=== PATIENT | male | born 1980 ===

== ENCOUNTER → 2023-01-31 07:28 | Outpatient (BNV) | payer MEDICAID, SELFPAY | PROVIDERS: Emergency Provider Internal Medicine; Visit Provider Internal Medicine | DX: R41.82 Altered mental status, unspecified (principal) | CPT/HCPCS: 93010 ==

== ENCOUNTER 2023-01-31 16:34 | Emergency (ER) | payer MEDICAID, SELFPAY ==
--- NOTE | ~2023-01-31 | XR_ITS ---
EXAMINATION: XR SHOULDER, RIGHT CLINICAL INFORMATION: Fall. COMPARISON: None available. TECHNIQUE: Four views of the right shoulder. FINDINGS: The bones and soft tissues are normal. No fracture. Glenohumeral and acromioclavicular alignment is anatomic with normal joint space. No abnormal soft tissue calcifications. XR/XR shoulder RT min 2V IMPRESSION: Normal right shoulder.
--- NOTE | ~2023-01-31 | CT_ITS ---
EXAMINATION: NONCONTRAST HEAD CT NONCONTRAST CERVICAL SPINE CT INDICATION INFORMATION: Fall 20 feet off a ladder. Loss of consciousness. COMPARISON: None TECHNIQUE: Separate noncontrast CT examinations of the head and cervical spine were performed. Coronal and sagittal images were created for each examination at the technologist workstation. This CT examination was performed using dose optimization techniques as appropriate, variously including the following: *Automated exposure control *Adjustment of mA and/or kV according to patient size (this includes techniques or standardized protocols for targeted exams where dose is matched to indication/reason for exam; i.e. extremities or head) *Use of iterative reconstruction technique DLP: 2355 mGy-cm in conjunction with the chest, abdomen, pelvis CT FINDINGS: Head: Motion limited evaluation. There is no evidence of acute intracranial hemorrhage or territorial infarction. No abnormal mass effect or midline shift is seen. Flores to white matter differentiation is well preserved. No extra-axial fluid collections are identified. No hydrocephalus. No significant volume loss. There is no abnormal attenuation within the brain parenchyma. No acute osseous or soft tissue abnormality. The mastoid air cells and visualized portions of the paranasal sinuses are well aerated. Cervical spine: There is anatomic alignment of the vertebral bodies and posterior elements. The atlantoaxial and atlantooccipital articulations are intact. Vertebral body heights and intervertebral disc spaces are maintained. No evidence of acute fracture. No prevertebral soft tissue swelling. Visualized portions of the lung apices are unremarkable. The thyroid gland is unremarkable. CT/CT cervical spine wo IV con IMPRESSION: 1. No acute intracranial finding. 2. No acute fracture or malalignment of the cervical spine.
--- NOTE | ~2023-01-31 | CT_ITS ---
EXAMINATION: CT CHEST, ABDOMEN AND PELVIS WITH CONTRAST. CLINICAL INFORMATION: trauma, fell 20 feet off of a ladder. COMPARISON: No pertinent prior studies are available for comparison. TECHNIQUE: Multidetector volumetric imaging was performed from the thoracic inlet through the pubic symphysis following the administration of: Oral contrast: No Intravenous contrast: 85 mL Omnipaque 350 No contrast reaction reported Sagittal and coronal reformatted images were obtained on the technologist workstation. In addition, thin section, high resolution reconstruction, targeted reformatted images through the thoracic and lumbar spine were obtained with coronal and sagittal high resolution reformatted images as well. This CT examination was performed using dose optimization techniques as appropriate, variously including the following: *Automated exposure control *Adjustment of mA and/or kV according to patient size (this includes techniques or standardized protocols for targeted exams where dose is matched to indication/reason for exam; i.e. extremities or head) *Use of iterative reconstruction technique Total exam dose-length product 340 mGy-cm FINDINGS: CHEST: VASCULAR: The aorta is normal; no evidence of dissection, aneurysm, or traumatic aortic injury. The central pulmonary arteries enhance normally. AORTIC ISTHMUS: Normal. MEDIASTINUM: No mediastinal fluid or hematoma. No worrisome hilar or mediastinal lymphadenopathy. Small calcified mediastinal and hilar lymph nodes are seen consistent with granulomatous disease. LUN calcified pulmonary nodules are seen consistent with granulomatous disease in the right middle lobe and right upper lobe. No worrisome nodules, mass, or focal consolidation. PLEURA: No pleural effusion. No pneumothorax. No pleural mass or thickening. CHEST WALL/AXILLA: Unremarkable. ABDOMEN/PELVIS : LIVER : The liver is normal in size and shape but demonstrates decreased attenuation consistent with hepatic steatosis. No focal hepatic lesion or biliary ductal dilatation is present. GALLBLADDER, AND BILIARY TREE The gallbladder is unremarkable with no evidence of radiopaque gallstones, gallbladder wall thickening, or obvious pericholecystic inflammatory changes. PANCREAS: Normal; no mass or surrounding fluid. SPLEEN: Normal size. No focal lesion. ADRENAL GLANDS: Normal; no mass. KIDNEYS AND URETERS: The kidneys are normal in size, shape, and attenuation. No hydronephrosis, hydroureter, or calculi. URINARY BLADDER: No focal mass or wall thickening seen. No bladder calculi. GASTROINTESTINAL TRACT: Stomach and small bowel non-dilated. No colonic wall thickening or pericolonic inflammatory changes. Status post cholecystectomy VASCULAR STRUCTURES: There is no evidence of aortic or iliac injury. The inferior vena cava is intact. ACTIVE BLEEDING: None LYMPH NODES: No lymphadenopathy. The aorta is unremarkable. PELVIC VISCERA: Mild prostatic enlargement. Seminal vesicles normal. FREE FLUID: None. ABDOMINAL WALL: No significant hernia is appreciated. OSSEOUS STRUCTURES : There is a fracture of the right scapula which is nondisplaced through the posterior spine. There is a fracture of the right fourth posterior rib, mildly comminuted. No other rib fractures.No clavicle fracture. No sternal fracture seen. Normal sagittal alignment of the thoracic and lumbar spine. Vertebral body and disc heights are maintained; no compression fracture. Posterior elements intact. No sacral or pelvic fracture, The visualized hips are intact. CT/CT abdomen pelvis w IV con IMPRESSION: 1. Nondisplaced fracture of the right scapula and comminuted right fourth rib. 2. No other evidence of a traumatic injury in the chest, abdomen or pelvis.
--- NOTE | 2023-01-31 07:28 | ECG_ITS ---
Test Reason : FALL Blood Pressure : / mmHG Vent. Rate : 075 BPM Atrial Rate : 075 BPM P-R Int : 152 ms QRS Dur : 090 ms QT Int : 372 ms P-R-T Axes : 019 076 038 degrees QTc Int : 415 ms Normal sinus rhythm Normal ECG No previous ECGs available Referred By: Severo Storey Electronically Signed By:MARTA TALBOT
--- NOTE | 2023-01-31 16:51 | ED.FALL ---
HPI - Fall General Chief Complaint: Trauma Stated Complaint: fell 20ft/ dislocated rt shoulder/ memory loss Time Seen by Provider: 01/31/23 17:13 Source: patient and other (Co work) Mode of arrival: ambulatory Limitations: no limitations History of Present Illness HPI Narrative: Patient 42 years old otherwise healthy was cutting Arbor vitae at a height of about 20 ft lateral slide down and patient fell backward hitting his upper back and head to the ground was confused and forgetful on arrival slowly recaptured is still not sure what happened complaining of pain in the right scapular area, ambulated to the ER Related Data Allergies Allergy/AdvReac Type Severity Reaction Status Date / Time No Known Allergies Allergy Verified 01/31/23 16:51 Review of Systems Review of Systems: Yes all other systems are reviewed and are negative [facility] Social History Social History Alcohol intake: current Alcohol intake frequency: a few times a month Smoked in Last 30 Days: Yes Use of substances other than those prescribed or required for medical reasons: No Advance Directives: No Advance Directives Information Provided: No Physical Exam Vital Signs: Vital Signs: Last Vital Signs Temp 98.2 F 01/31/23 18:12 Pulse 65 01/31/23 20:21 Resp 14 01/31/23 20:21 BP 127/94 H 01/31/23 20:21 Pulse Ox 97 01/31/23 20:21 O2 Del Method Room Air 01/31/23 20:21 BMI result Body Mass Index 27.4 Appearance: Alert. Oriented X2. No acute distress. GCS 14 Eyes: PERRLA, No Nystagmus ENT: Pharynx normal. Oral Mucosa moist Neck: Normal inspection. Neck supple. No midline tenderness CVS: Normal heart rate and rhythm. Pulses normal. Respiratory: No respiratory distress. Equal air entry bilateral, no wheezing/rales/rhonchi Abdomen: Soft and nontender. Bowel sounds are present, no mass palpable, no CVA tenderness Skin: Skin warm and dry. Normal skin color. Normal skin turgor. Extremities: No lower extremity edema. No calf tenderness diffuse tenderness right shoulder and right scapular area Neuro: Oriented X 2-3. No motor deficit. No sensory deficit.No cerebellar signs , cranial nerves II-XII intact Course Course Course Narrative: RME - 42 y/o male presents to the ER for evaluation of right shoulder pain and headache after he fell 20 feet off of a ladder while cutting arbor vitaes 20 minutes ago. +headstrike and LOC, +amnesia and confusion Plan: labs and panscan Medications Administered Discontinued Medications Generic Name Dose Route Start Last Admin Trade Name Chinyere PRN Reason Stop Dose Admin Sodium Chloride 1,000 mls @ 999 mls/hr 01/31/23 17:21 01/31/23 20:54 Ns IV 01/31/23 18:21 Infused .Q1H1M ONE Infusion Iohexol 100 ml 01/31/23 17:41 01/31/23 17:42 Iohexol 350 Mg/Ml 100 Ml Infus..Btl IV 01/31/23 17:42 85 ml ONCE ONE Administration Morphine Sulfate 4 mg 01/31/23 17:21 01/31/23 17:53 Morphine Sulfate 4 Mg/Ml Cartridge IVPUSH 01/31/23 17:22 4 mg ONCE ONE Administration Protocol Morphine Sulfate 4 mg 01/31/23 20:04 01/31/23 20:25 Morphine Sulfate 4 Mg/Ml Cartridge IVPUSH 01/31/23 20:05 Not Given ONCE ONE Protocol Ondansetron HCl 4 mg 01/31/23 17:21 01/31/23 17:53 Ondansetron Hcl 4 Mg/2 Ml Vial IVPUSH 01/31/23 17:22 4 mg ONCE ONE Administration Procedures FAST Exam FAST Exam 1: Fluid in Morison's pouch: No Fluid in Splenorenal Junction: No Fluid around bladder, Transverse view: No Fluid around bladder, Sagittal view: No Fluid in Pericardial Sac: No Gross Wall Motion Abnormality: No Study normal for this patient: Yes Images saved for further review: No Medical Decision Making Medical Decision Making MDM Narrative: Patient has significant trauma fell from 20 ft landed on his back confused on arrival gradually improved in consciousness now alert oriented x3 CT scan of the head C-spine abdomen pelvis negative CT chest showed right scapular nondisplaced fracture with right 4th rib fracture case discussed with Dr. Fairbanks trauma surgeon at [facility] accepted the patient for trauma evaluation in the ED at this time patient GCS is 15 blood pressure 129/90 pulse rate 77 saturating 98% at room air Lab Data MDM Lab Attestation statement: I reviewed the patient's lab results. 01/31/23 17:06 01/31/23 17:06 Labs: Lab Results 01/31/23 01/31/23 01/31/23 Range/Units 17:05 17:06 17:06 WBC 8.9 (4.8-10.8) X10*3/uL RBC 5.05 (4.60-5.80) X10*6/uL Hgb 14.4 (14.0-18.0) g/dl Hct 42.6 (42.0-52.0) % MCV 84.4 (80.0-98.0) fL MCH 28.5 (27.0-33.0) pg MCHC 33.8 (31.0-36.0) g/dl RDW 11.8 (11.0-16.0) % Plt Count 327 (160-400) X10*3/uL MPV 8.8 L (9.4-12.4) fL Immature Gran % (Auto) 1.2 H (0.0-0.4) % Neut % (Auto) 60.7 (45-73) % Lymph % (Auto) 30.0 (20-40) % [place] % (Auto) 4.5 (2-11) % Eos % (Auto) 3.4 (0-4) % Baso % (Auto) 0.2 (0-2) % Lymph # (Auto) 2.7 (1.2-4.9) X10*3/uL [place] # (Auto) 0.4 (0.1-1.2) X10*3/uL Eos # (Auto) 0.3 (0.0-0.4) X10*3/uL Baso # (Auto) 0.0 (0.0-0.2) X10*3/uL Abs Immat Gran (auto) 0.11 H (0.00-0.03) X10*3/uL Absolute Neuts (auto) 5.4 (2.0-8.3) x10*3/uL Absolute Nucleated RBC 0.000 (0.0-0.012) X10*3/uL Nucleated RBC % (auto) 0.0 (0.0-0.2) /100WBC PT 11.8 (11.1-13.3) SEC INR 1.0 (0.9-1.1) APTT 29.3 (26.0-36.4) SEC Sodium (135-145) mmol/L Potassium (3.3-5.1) mmol/L Chloride (96-108) mmol/L Carbon Dioxide (22-29) mmol/L Anion Gap (12-20) BUN (9-16) mg/dL Creatinine (0.5-1.4) mg/dL Estim Creat Clear Calc Estimated GFR Random Glucose (60-115) mg/dL Calcium (8.4-10.2) mg/dL Magnesium (1.6-2.6) mg/dL Total Bilirubin (0.0-1.0) mg/dL Direct Bilirubin (0.0-0.5) mg/dL AST (5-37) U/L ALT (0-40) U/L Alkaline Phosphatase (39-117) U/L Total Protein (6.5-8.0) g/dL Albumin (3.5-5.0) g/dL Urine Color Urine Appearance Urine pH (5.0-9.0) Ur Specific [place] (1.005-1.025) Urine Protein (Neg-Trace) mg/dL Urine Glucose (UA) (Negative) mg/dL Urine Ketones (Negative) mg/dL Urine Blood (Negative) Urine Nitrite (Negative) Ur Leukocyte Esterase (Negative) COVID-19 (ROGER) (Negative) COVID-19 Clin Com Blood Type O Positive Antibody Screen NEGATIVE 01/31/23 01/31/23 01/31/23 Range/Units 17:06 19:06 19:57 WBC (4.8-10.8) X10*3/uL RBC (4.60-5.80) X10*6/uL Hgb (14.0-18.0) g/dl Hct (42.0-52.0) % MCV (80.0-98.0) fL MCH (27.0-33.0) pg MCHC (31.0-36.0) g/dl RDW (11.0-16.0) % Plt Count (160-400) X10*3/uL MPV (9.4-12.4) fL Immature Gran % (Auto) (0.0-0.4) % Neut % (Auto) (45-73) % Lymph % (Auto) (20-40) % [place] % (Auto) (2-11) % Eos % (Auto) (0-4) % Baso % (Auto) (0-2) % Lymph # (Auto) (1.2-4.9) X10*3/uL [place] # (Auto) (0.1-1.2) X10*3/uL Eos # (Auto) (0.0-0.4) X10*3/uL Baso # (Auto) (0.0-0.2) X10*3/uL Abs Immat Gran (auto) (0.00-0.03) X10*3/uL Absolute Neuts (auto) (2.0-8.3) x10*3/uL Absolute Nucleated RBC (0.0-0.012) X10*3/uL Nucleated RBC % (auto) (0.0-0.2) /100WBC PT (11.1-13.3) SEC INR (0.9-1.1) APTT (26.0-36.4) SEC Sodium 142 (135-145) mmol/L Potassium 4.0 (3.3-5.1) mmol/L Chloride 106 (96-108) mmol/L Carbon Dioxide 22 (22-29) mmol/L Anion Gap 18 (12-20) BUN 21 H (9-16) mg/dL Creatinine 1.11 (0.5-1.4) mg/dL Estim Creat Clear Calc 75.0 Estimated GFR > 60 Random Glucose 174 H (60-115) mg/dL Calcium 10.7 H (8.4-10.2) mg/dL Magnesium 2.6 (1.6-2.6) mg/dL Total Bilirubin 0.3 (0.0-1.0) mg/dL Direct Bilirubin 0.1 (0.0-0.5) mg/dL AST 27 (5-37) U/L ALT 52 H (0-40) U/L Alkaline Phosphatase 117 (39-117) U/L Total Protein 8.3 H (6.5-8.0) g/dL Albumin 4.7 (3.5-5.0) g/dL Urine Color Yellow Urine Appearance Clear Urine pH 5.5 (5.0-9.0) Ur Specific [place] >= 1.030 H (1.005-1.025) Urine Protein Negative (Neg-Trace) mg/dL Urine Glucose (UA) Negative (Negative) mg/dL Urine Ketones Negative (Negative) mg/dL Urine Blood Negative (Negative) Urine Nitrite Negative (Negative) Ur Leukocyte Esterase Negative (Negative) COVID-19 (ROGER) Negative (Negative) COVID-19 Clin Com See Note Blood Type Antibody Screen Radiology Impression Discussion of test interpretation with radiology: I have reviewed the radiologist's reading. Radiologist Impression: [address] [address] [address] Scan Report Signed Patient: Param Rodriguez MR#: [id number] : 1980 Acct:[id number] Age/Sex: 42 / M ADM Date: 01/31/23 Loc: .ED Attending Dr: Ordering Physician: Barb Jones Date of Service: 01/31/23 Procedure(s): CT chest w IV con Accession Number(s): [id number] cc: Barb Jones~ EXAMINATION: CT CHEST, ABDOMEN AND PELVIS WITH CONTRAST. CLINICAL INFORMATION: trauma, fell 20 feet off of a ladder. COMPARISON: No pertinent prior studies are available for comparison. TECHNIQUE: Multidetector volumetric imaging was performed from the thoracic inlet through the pubic symphysis following the administration of: Oral contrast: No Intravenous contrast: 85 mL Omnipaque 350 No contrast reaction reported Sagittal and coronal reformatted images were obtained on the technologist workstation. In addition, thin section, high resolution reconstruction, targeted reformatted images through the thoracic and lumbar spine were obtained with coronal and sagittal high resolution reformatted images as well. This CT examination was performed using dose optimization techniques as appropriate, variously including the following: *Automated exposure control *Adjustment of mA and/or kV according to patient size (this includes techniques or standardized protocols for targeted exams where dose is matched to indication/reason for exam; i.e. extremities or head) *Use of iterative reconstruction technique Total exam dose-length product 340 mGy-cm FINDINGS: CHEST: VASCULAR: The aorta is normal; no evidence of dissection, aneurysm, or traumatic aortic injury.? The central pulmonary arteries enhance normally. AORTIC ISTHMUS: Normal. MEDIASTINUM: No mediastinal fluid or hematoma.? No worrisome hilar or mediastinal lymphadenopathy. Small calcified mediastinal and hilar lymph nodes are seen consistent with granulomatous disease. LUN calcified pulmonary nodules are seen consistent with granulomatous disease in the right middle lobe and right upper lobe. No worrisome nodules, mass, or focal consolidation. PLEURA: No pleural effusion. No pneumothorax.? No pleural mass or thickening. CHEST WALL/AXILLA: Unremarkable. ABDOMEN/PELVIS : LIVER : The liver is normal in size and shape but demonstrates decreased attenuation consistent with hepatic steatosis. No focal hepatic lesion or biliary ductal dilatation is present.? GALLBLADDER, AND BILIARY TREE The gallbladder is unremarkable with no evidence of radiopaque gallstones, gallbladder wall thickening, or obvious pericholecystic inflammatory changes. PANCREAS: Normal; no mass or surrounding fluid.? SPLEEN: Normal size.? No focal lesion.? ADRENAL GLANDS: Normal; no mass.? KIDNEYS AND URETERS: The kidneys are normal in size, shape, and attenuation. No hydronephrosis, hydroureter, or calculi. ? URINARY BLADDER: No focal mass or wall thickening seen.? No bladder calculi.? GASTROINTESTINAL TRACT: Stomach and small bowel non-dilated.? No colonic wall thickening or pericolonic inflammatory changes.? Status post cholecystectomy VASCULAR STRUCTURES: There is no evidence of aortic or iliac injury. The inferior vena cava is intact. ACTIVE BLEEDING: None LYMPH NODES: No lymphadenopathy. The aorta is unremarkable.? PELVIC VISCERA: Mild prostatic enlargement. Seminal vesicles normal. FREE FLUID: None. ABDOMINAL WALL: No significant hernia is appreciated.? OSSEOUS STRUCTURES : There is a fracture of the right scapula which is nondisplaced through the posterior spine. There is a fracture of the right fourth posterior rib, mildly comminuted. No other rib fractures.No clavicle fracture. No sternal fracture seen. Normal sagittal alignment of the thoracic and lumbar spine.? Vertebral body and disc heights are maintained; no compression fracture.? Posterior elements intact. No sacral or pelvic fracture,? The visualized hips are intact. CT/CT chest w IV con IMPRESSION: 1.? Nondisplaced fracture of the right scapula and comminuted right fourth rib. 2.? No other evidence of a traumatic injury in the chest, abdomen or pelvis. ? Dictated By: Jd Gr MD Signed By: <Electronically signed by Jd Gr MD in [place]> 01/31/230 DD/ 16 TD/TT:? Seat Scooper Machine: [address] [address] [address] Scan Report Signed Patient: Param Rodriguez MR#: [id number] : 1980 Acct:[id number] Age/Sex: 42 / M ADM Date: 01/31/23 Loc: HO.ED Attending Dr: Ordering Physician: Barb Jones Date of Service: 01/31/23 Procedure(s): CT head/brain wo IV con Accession Number(s): [id number] cc: Barb Jones~ EXAMINATION: NONCONTRAST HEAD CT NONCONTRAST CERVICAL SPINE CT INDICATION INFORMATION: Fall 20 feet off a ladder. Loss of consciousness. COMPARISON: None TECHNIQUE: Separate noncontrast CT examinations of the head and cervical spine were performed. Coronal and sagittal images were created for each examination at the technologist workstation. This CT examination was performed using dose optimization techniques as appropriate, variously including the following: *Automated exposure control *Adjustment of mA and/or kV according to patient size (this includes techniques or standardized protocols for targeted exams where dose is matched to indication/reason for exam; i.e. extremities or head) *Use of iterative reconstruction technique DLP: 2355 mGy-cm in conjunction with the chest, abdomen, pelvis CT FINDINGS: Head: Motion limited evaluation. There is no evidence of acute intracranial hemorrhage or territorial infarction. No abnormal mass effect or midline shift is seen. Flores to white matter differentiation is well preserved. No extra-axial fluid collections are identified. No hydrocephalus. No significant volume loss. There is no abnormal attenuation within the brain parenchyma. No acute osseous or soft tissue abnormality. The mastoid air cells and visualized portions of the paranasal sinuses are well aerated. Cervical spine: There is anatomic alignment of the vertebral bodies and posterior elements. The atlantoaxial and atlantooccipital articulations are intact. Vertebral body heights and intervertebral disc spaces are maintained.? No evidence of acute fracture. No prevertebral soft tissue swelling. Visualized portions of the lung apices are unremarkable. The thyroid gland is unremarkable. CT/CT head/brain wo IV con IMPRESSION: 1.? No acute intracranial finding. 2.? No acute fracture or malalignment of the cervical spine. [address] [address] XRay Report Signed Patient: Param Rodriguez MR#: [id number] : 1980 Acct:[id number] Age/Sex: 42 / M ADM Date: 01/31/23 Loc: HO.ED Attending Dr: Ordering Physician: Severo Storey MD Date of Service: 01/31/23 Procedure(s): XR shoulder RT min 2V Accession Number(s): [id number] cc: Severo Storey MD~ EXAMINATION: XR SHOULDER, RIGHT CLINICAL INFORMATION: Fall.? COMPARISON: None available.? TECHNIQUE: Four views of the right shoulder. FINDINGS: The bones and soft tissues are normal. No fracture. Glenohumeral and acromioclavicular alignment is anatomic with normal joint space. No abnormal soft tissue calcifications.? XR/XR shoulder RT min 2V IMPRESSION: Normal right shoulder. Dictated By: Km Olivia MD Signed By: <Electronically signed by Km Olivia MD in OV> Critical Care Time Critical Care Time Critical Care Time: Yes Total Critical Care Time: 55 Attestation: The patient was critically ill with a high probability of imminent or life threatening deterioration. I spent greater than 60 minutes of discontinuous time evaluating the patient,delivering critical care at the bedside, discussing and evaluating pertinent data with consultants. Critical care time does not include time spent performing separately billable procedures or teaching. Total time spent performing critical care was 55 minutes. Discharge Plan Discharge Clinical Impression: Fall, Closed right scapular fracture, Right rib fracture Patient Disposition: er Acute Care Hospital Transfer Details: [facility] ED for trauma evaluation Interventions: Acute Care Transfer Worksheet (ED) Last Done: 01/31/23 20:55 Discharge Date/Time: 01/31/23 20:56
[2023-01-31 16:52] VITALS: BP 109/72; PULSE 77; RESP 18; TEMP 36.8; O2SAT 98; BMI 27.4
[2023-01-31 17:13] VITALS: BP 119/84; PULSE 74; RESP 18; O2SAT 96
[2023-01-31 17:14] LABS: Basophils Percent Auto 0.2 % (0-2); Eosinophils Absolute Auto 0.3 X10*3/uL (0.0-0.4); Eosinophils Percent Auto 3.4 % (0-4); Hematocrit 42.6 % (42.0-52.0); Hemoglobin 14.4 g/dl (14.0-18.0); Imm Gran Abs Auto 0.11 X10*3/uL (0.00-0.03); Imm Gran Pct Auto 1.2 % (0.0-0.4); Lymphocytes Absolute Auto 2.7 X10*3/uL (1.2-4.9); MANUAL DIFF FLAG NO; Mean Corpuscular HGB Conc 33.8 g/dl (31.0-36.0); Mean Corpuscular Hemoglobin 28.5 pg (27.0-33.0); Mean Corpuscular Volume 84.4 fL (80.0-98.0); Mean Platelet Volume 8.8 fL (9.4-12.4); Monocytes Absolute Auto 0.4 X10*3/uL (0.1-1.2); Monocytes Percent Auto 4.5 % (2-11); Neutrophils Absolute Auto 5.4 x10*3/uL (2.0-8.3); Neutrophils Percent Auto 60.7 % (45-73); Platelet Count 327 X10*3/uL (160-400); Red Blood Count 5.05 X10*6/uL (4.60-5.80); Red Cell Distribution Width 11.8 % (11.0-16.0); White Blood Count 8.9 X10*3/uL (4.8-10.8)
[2023-01-31 17:24] LABS: Prothrombin Time 11.8 SEC (11.1-13.3)
[2023-01-31 17:27] LABS: Partial Thromboplastin Time 29.3 SEC (26.0-36.4)
[2023-01-31 17:33] LABS: Alanine Aminotransferase 52 U/L (0-40); Albumin Level 4.7 g/dL (3.5-5.0); Alkaline Phosphatase 117 U/L (39-117); Anion Gap 18 (12-20); Aspartate Amino Transferase 27 U/L (5-37); Bilirubin Direct 0.1 mg/dL (0.0-0.5); Bilirubin Total 0.3 mg/dL (0.0-1.0); Blood Urea Nitrogen 21 mg/dL (9-16); Calcium 10.7 mg/dL (8.4-10.2); Carbon Dioxide 22 mmol/L (22-29); Chloride 106 mmol/L (96-108); Estimated Glomerular Filt Rate > 60; Glucose Random 174 mg/dL (60-115); Magnesium 2.6 mg/dL (1.6-2.6); Sodium 142 mmol/L (135-145); Total Protein 8.3 g/dL (6.5-8.0)
[2023-01-31] MEDS: iohexoL 350 MG/ML 100 ML INFUS..BTL IV (17:42)
[2023-01-31 17:49] VITALS: BP 123/86; PULSE 76; RESP 18; O2SAT 97
[2023-01-31] MEDS: 0.9 % Sodium Chloride 1,000 ML 999 ML IV (17:49)
[2023-01-31] MEDS: Morphine Sulfate 4 MG/ML CARTRIDGE IVPUSH (17:53)
[2023-01-31] MEDS: ondansetron HCL 4 MG/2 ML VIAL IVPUSH (17:53)
[2023-01-31 18:12] VITALS: BP 129/91; PULSE 77; RESP 15; TEMP 36.8; O2SAT 98
[2023-01-31 19:21] LABS: Appearance Urine Clear; Color Urine Yellow; Glucose Urine UA Negative (Negative); Leukocyte Esterase Urine Negative (Negative); Nitrite Urine Negative (Negative); PH 5.5 (5.0-9.0); Specific Gravity - Urine >= 1.030 (1.005-1.025); Urine Blood Negative (Negative); Urine Ketones Negative (Negative); Urine Protein Negative (Neg-Trace)
[2023-01-31 20:21] VITALS: BP 127/94; PULSE 65; RESP 14; O2SAT 97
[2023-01-31 20:23] LABS: COVID-19 Test Negative (Negative); IDNOW Serial# 08D9AD1C
--- NOTE | 2023-01-31 20:27 | PC.NURSE ---
This typewriter operator automatic assumed care at 1900, pt a&ox4, reports 8/10 pain, to right shoulder, radiates to the back. pt denies SOB or CP. Reports nonproductive cough. Pt refused morphine for pain, states pain is tolerable at this time. Pt is is able to stand at bedside, for urinal use. Pt will be transfered to [facility] via ambulance. Pt and family aware of plan.
--- NOTE | 2023-01-31 20:54 | PC.NURSE ---
RN to RN report given to Adore at [facility]. Pt will be transferred via ambulance. Pt and family aware of plan.
== END 2023-01-31 20:56 | disposition short-term general hospital (02) ==
PROVIDERS: Physician Assistant; Emergency Provider Internal Medicine
DX: S42.101A Fracture of unspecified part of scapula, right shoulder, initial encounter for closed fracture (principal); S22.31XA Fracture of one rib, right side, initial encounter for closed fracture; W11.XXXA Fall on and from ladder, initial encounter; Y93.H2 Activity, gardening and landscaping; Y92.9 Unspecified place or not applicable; Y99.9 Unspecified external cause status
CPT/HCPCS: 36415; 70450; 71260; 72125; 73030; 74177; 80048; 80076; 81003; 83735; 85025; 85610; 85730; 86850; 86900; 86901; 87635; 93005; 96361; 96374; 96375; 99285; J2270; J2405; Q9967